=== PATIENT | female | born 1935 | race Caucasian/White ===

== ENCOUNTER → 2017-02-04 | Outpatient (CLI) | payer MEDICARE, OTHER | LOC: GMA 13:42 | PROVIDERS: ATTEND Nurse Practitioner Family | DX: N30.00 Acute cystitis without hematuria (principal) ==

== ENCOUNTER → 2017-04-11 | Outpatient (CLI) | payer MEDICARE, OTHER | END | disposition home or self-care (01) | LOC: GMAM 10:14 | PROVIDERS: ATTEND Family Medicine | DX: E03.9 Hypothyroidism, unspecified (principal); I10 Essential (primary) hypertension ==

== ENCOUNTER → 2017-10-10 | Outpatient (CLI) | payer MEDICARE, OTHER | END | disposition home or self-care (01) | LOC: GMAM 10:44 | PROVIDERS: ATTEND Family Medicine | DX: E03.9 Hypothyroidism, unspecified (principal); E55.9 Vitamin D deficiency, unspecified ==

== ENCOUNTER → 2017-10-18 | Outpatient (CLI) | payer MEDICARE, OTHER | END | disposition home or self-care (01) | LOC: GMAM 17:13 | PROVIDERS: ATTEND Family Medicine | DX: N39.0 Urinary tract infection, site not specified (principal) ==

== ENCOUNTER → 2017-10-20 | Outpatient (CLI) | payer MEDICARE, OTHER ==
--- NOTE | 2017-10-22 08:04 | CT ---
EXAM DESCRIPTION: Pelvis CLINICAL HISTORY: SUPRAPUBIC ABDOMINAL PAIN COMPARISON: None. TECHNIQUE: Spiral-axial scans 5.0 mm intervals through the pelvis: no water soluble barium contrast; no IV contrast. Coronal and axial 2.0 mm reconstructions. Total Exam DLP: 511.52 mGy-cm. This exam was performed according to our departmental CT dose-optimization program which includes automated exposure control, adjustment of the mA and/or kV according to patient size and/or use of iterative reconstruction technique; to reduce radiation dose to as low as reasonably achievable (ALARA). FINDINGS: Spine and Bony Pelvis: Fusion construct involving the S1 segment and the included lumbar segments, posterior bilateral transpedicular screws and interbody fusion. Also anterior fusion construct at L3-4. The included disc spaces contain fusion devices. The included hardware appears to be in customary position. Also posterior bilateral iliac anchors. Beam hardening artifact from the hardware limits evaluation of adjacent soft tissues. Pelvic Organs: Urinary bladder is nondistended. No radiodense stones in the bladder or distal ureters. No fluid in the cul-de-sac. Uterus and ovaries are not visualized. Mesentery: No definite stranding fascial thickening. No free fluid or free air. Small Bowel/Terminal ileum: Included small bowel is nondistended with no air-fluid levels. Normal caliber. Cecum: Distended with fecal material. Appendix is not seen. Colon: Included descending colon is distended with fecal material. Moderate redundancy of the sigmoid colon. Distal sigmoid distended with gas. No definite mass. Inguinal Canals: Small left inguinal hernia containing fat and no bowel. Pelvic Wall/Back Soft Tissues: Unremarkable. Distal aorta and bifurcation showing significant atherosclerotic calcification and narrowing. IMPRESSION: No soft tissue mass in the pelvis and no free fluid. No free air. Cecum and ascending colon showing minimal constipation. Distal sigmoid colon distended by gas. Lumbosacral iliac fusion hardware appears intact where seen. Hardware is creating artifact which limits evaluation of the pelvis. Electronically signed by: Howard Britt MD 10/22/2017 8:03 AM [employer] Workstation: [employer]
== END ==
LOC: CT 10:16
PROVIDERS: ATTEND Family Medicine
DX: R10.33 Periumbilical pain (principal); R10.815 Periumbilic abdominal tenderness; I10 Essential (primary) hypertension; E78.2 Mixed hyperlipidemia; E03.9 Hypothyroidism, unspecified; K21.9 Gastro-esophageal reflux disease without esophagitis

== ENCOUNTER → 2017-12-29 | Outpatient (CLI) | payer MEDICARE, OTHER ==
--- NOTE | 2017-12-29 08:49 | RAD ---
EXAM DESCRIPTION: Knee,Right Complete CLINICAL HISTORY: KNEE PAIN COMPARISON: None. IMPRESSION: 4 standing views of the right knee show no evidence of acute fracture, focal bone destruction, or joint dislocation. Moderate narrowing of the medial tibiofemoral compartment is seen consistent with moderate osteoarthritic changes. Mild narrowing of the patellofemoral compartment more prominent laterally with posterior osteophytes of the patella are consistent with moderate patellofemoral compartment osteoarthritic changes. Small suprapatellar joint effusion is seen. Electronically signed by: Carlo High MD 12/29/2017 8:48 AM [facility]
--- NOTE | 2017-12-29 08:54 | RAD ---
EXAM DESCRIPTION: Pelvis CLINICAL HISTORY: 82 years Female, HIP PAIN COMPARISON: None. TECHNIQUE: Single AP x-ray view of the pelvis FINDINGS: Orthopedic hardware is seen in the lower lumbar spine and sacrum and iliac bodies. Laminectomies of the lower lumbar spine are noted with posterior bone mass consistent with spinal fusion. No hardware fracture is seen. Bones of the pelvic ring appear intact. Density in the right iliac wing may be a bone island. Proximal femurs appear intact. No hip dislocation or femoral fracture. Degenerative changes are seen in the pubic symphysis. Hip joint space appears well-preserved for age. IMPRESSION: Orthopedic hardware in the lower L-spine and sacrum with lower lumbar fusion. Negative for fracture or dislocation of the hips. Electronically signed by: Tacho Love MD 12/29/2017 8:53 AM [facility]
== END ==
LOC: RAD 07:46
PROVIDERS: ATTEND Orthopaedic Surgery
DX: M25.561 Pain in right knee (principal); M25.551 Pain in right hip; Z98.1 Arthrodesis status

== ENCOUNTER → 2018-02-07 | Outpatient (CLI) | payer MEDICARE, OTHER | END | disposition home or self-care (01) | LOC: GMATM 17:10 | PROVIDERS: ATTEND Nurse Practitioner Family | DX: N30.00 Acute cystitis without hematuria (principal) ==

== ENCOUNTER 2018-02-10 09:09 | Emergency (ER) | payer MEDICARE, OTHER ==
[2018-02-10 09:27] VITALS: TEMP 97.5
--- NOTE | 2018-02-10 10:54 | ED.PDOC ---
History of Present Illness - General Chief Complaint: Cardiovascular Problem Stated Complaint: palpitations Time Seen by Provider: 02/10/18 09:27 Source: patient Exam Limitations: no limitations - History of Present Illness Initial Comments: the patient is an 82-year-old female presenting to the emergency room secondary to palpitations that occurred last night around 1 AM. Palpitations lasted for about 30 minutes. No real shortness of breath. No chest pain. No leg swelling. No leg pain. No new back pain. They went away on their own. There were not any worse with movement. No nausea or vomiting. No diaphoresis. The patient has had a history of a mild arrhythmia in the past but has not had any problems she's been on metoprolol. The patient did go on ciprofloxacin for treatment for a urinary tract infection approximately for 5 days ago. She is in no distress currently and has not had any symptoms for the last 8 or 9 hours. She did take her morning medications. Timing/Duration: 1 hour Severity: mild Improving Factors: nothing Worsening Factors: nothing Associated Symptoms: denies symptoms Allergies/Adverse Reactions: Allergies NO KNOWN ALLERGY Allergy (Verified 09/27/15 15:55) Home Medications: Ambulatory Orders Amlodipine Besylate [Norvasc] 2.5 mg PO DAILY 09/27/15 Aspirin [Aspirin Adult Low Dose] 81 mg PO DAILY 09/27/15 Calcium 1,200 mg PO BID 09/27/15 Cholecalciferol [Vitamin D] 4,000 unit PO BID 09/27/15 Furosemide [Lasix] 40 mg PO DAILY 09/27/15 Levothyroxine Sodium 50 mcg PO DAILY 09/27/15 Metoprolol Tartrate [Lopressor] 25 mg PO BEDTIME 09/27/15 Metoprolol Tartrate [Lopressor] 50 mg PO ACBK 09/27/15 Omeprazole [PriLOSEC Cap] 20 mg PO ALONA-OTH-DAY 09/27/15 Potassium Chloride Tab [Micro-K] 10 meq PO DAILY 09/27/15 Simvastatin [Zocor] 20 mg PO BEDTIME 09/27/15 Multiple Vitamins W/ Minerals [Eye Vitamins] 2 cap PO DAILY 02/10/18 Review of Systems - Review of Systems Constitutional: States: no symptoms reported EENTM: States: no symptoms reported Respiratory: States: no symptoms reported Cardiology: States: palpitations Gastrointestinal/Abdominal: States: no symptoms reported Genitourinary: States: no symptoms reported Musculoskeletal: States: no symptoms reported Skin: States: no symptoms reported Neurological: States: no symptoms reported Endocrine: States: no symptoms reported Hematologic/Lymphatic: States: no symptoms reported All other Systems: No Change from Baseline Past Medical History (General) - Patient Medical History Hx Stroke: No Hx Congestive Heart Failure: No Hx Hypertension: Yes Hx Thyroid Disease: Yes Hx Gastroesophageal Reflux: Yes Surgical History: appendectomy, Hysterectomy - Vaccination History Hx Tetanus, Diphtheria Vaccination: No Hx Influenza Vaccination: Yes Hx Pneumococcal Vaccination: Yes - Social History Hx Tobacco Use: No Hx Alcohol Use: No Hx Substance Use: No Hx Substance Use Treatment: No Hx Depression: No Family Medical History - Family History Mother Family History: Unknown Living Status: Physical Exam - Physical Exam General Appearance: Alert, Comfortable, No apparent distress Eye Exam: bilateral normal Ears, Nose, Throat: hearing grossly normal, normal ENT inspection, normal pharynx Neck: full range of motion, supple Respiratory: lungs clear, normal breath sounds, no respiratory distress, no accessory muscle use Cardiovascular/Chest: normal peripheral pulses, regular rate, rhythm, no edema Peripheral Pulses: radial,right: 2+, radial,left: 2+, dorsalis pedis,right: 2+, dorsalis pedis,left: 2+ Gastrointestinal/Abdominal: non tender, soft Rectal Exam: deferred Back Exam: normal inspection, no CVA tenderness, no vertebral tenderness Extremity: normal range of motion, non-tender, normal inspection, no pedal edema , no calf tenderness, normal capillary refill Neurologic: 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 II-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 nml as tested, alert, normal mood/affect, oriented x 3 Skin Exam: normal color Comments: Vital Signs - 8 hr 02/10/18 02/10/18 02/10/18 09:22 10:03 10:04 Temperature 97.5 F L Pulse Rate 70 Pulse Rate [ 78 70 Left Brachial] Respiratory 16 Rate Blood Pressure 160/76 [Left Arm] O2 Sat by Pulse 100 Oximetry 02/10/18 10:10 Temperature Pulse Rate Pulse Rate [ 66 Left Brachial] Respiratory 16 Rate Blood Pressure 120/61 [Left Arm] O2 Sat by Pulse 97 Oximetry Progress - Progress Progress: 02/10/18 10:55 the patient is an 82-year-old female presenting after an episode of palpitations last night approximately 8 hours prior to arrival that has resolved. Laboratory work appears to be reassuring as does the EKG and telemetry monitoring. It is possible she may have had some palpitations due to interference with her ciprofloxacin and her metoprolol. She will discontinue the ciprofloxacin as her urine does appear to have cleared up. She is to continue the metoprolol. The palpitations that she experienced last night certainly may have been from cardiac origin but may have also been from esophageal irritation from the antibiotic. She needs to take Pepcid twice daily for the next 1-2 weeks [id number]. She needs to keep herself well- hydrated. She should follow up with her primary care doctor towards the end of this coming week for reevaluation. - Results/Orders Results/Orders: 02/10/18 09:30 EKG STAT 02/10/18 09:38 Telemetry .CONTINUOUS EKG Assessment ONCE Laboratory Results - last 24 hr 02/10/18 02/10/18 02/10/18 09:51 09:56 09:56 WBC 4.2 L RBC 4.24 Hgb 12.5 Hct 37.3 MCV 88.0 MCH 29.6 MCHC 33.7 RDW 14.8 H Plt Count 168 MPV 8.3 Absolute Neuts (auto) 2.70 Absolute Lymphs (auto) 0.70 L Absolute Monos (auto) 0.50 Absolute Eos (auto) 0.20 Absolute Basos (auto) 0.10 Neutrophils % 66.1 Lymphocytes % 17.2 L Monocytes % 10.9 H Eosinophils % 4.6 Basophils % 1.2 Sodium 141 Potassium 3.5 L Chloride 106 Carbon Dioxide 30 Anion Gap 8.5 L BUN 17 Creatinine 0.87 BUN/Creatinine Ratio 19.5 Random Glucose 91 Serum Osmolality 282.4 Calcium 9.3 Magnesium 2.1 Total Bilirubin 0.8 AST 22 ALT 18 Alkaline Phosphatase 54 Creatine Kinase 40 CK-MB (CK-2) 1.4 CK-MB (CK-2) % Not Reportable Troponin I < 0.02 B-Natriuretic Peptide 180.0 H Serum Total Protein 6.9 Albumin 4.1 Globulin 2.8 Albumin/Globulin Ratio 1.5 TSH 2.17 Urine Color Yellow Urine Appearance Clear Urine pH 6.0 Ur Specific [place] <= 1.005 Urine Protein Negative Urine Glucose (UA) Negative Urine Ketones Negative Urine Blood Negative Urine Nitrite Negative Urine Bilirubin Negative Urine Urobilinogen 0.2 Ur Leukocyte Esterase Negative Urine RBC 0 Urine WBC 0 Ur Epithelial Cells 0 Urine Bacteria 0 EKG shows normal sinus rhythm with a mild first-degree AV block. There is an old Q wave in lead 3. No other obvious abnormalities on EKG. No acute ST or T- segment changes consistent with acute ischemia. Departure - Departure Clinical Impression: Palpitations Disposition: Discharge to Home or Self Care Condition: Fair Departure Forms: ED Discharge - Pt. Copy, Patient Portal Self Enrollment Instructions: DI for Palpitations Diet: regular diet Activity: increase activity as tolerated Referrals: Romario Jiménez MD [Primary Care Provider] - 1-2 Weeks Home Medications: Ambulatory Orders Amlodipine Besylate [Norvasc] 2.5 mg PO DAILY 09/27/15 Aspirin [Aspirin Adult Low Dose] 81 mg PO DAILY 09/27/15 Calcium 1,200 mg PO BID 09/27/15 Cholecalciferol [Vitamin D] 4,000 unit PO BID 09/27/15 Furosemide [Lasix] 40 mg PO DAILY 09/27/15 Levothyroxine Sodium 50 mcg PO DAILY 09/27/15 Metoprolol Tartrate [Lopressor] 25 mg PO BEDTIME 09/27/15 Metoprolol Tartrate [Lopressor] 50 mg PO ACBK 09/27/15 Omeprazole [PriLOSEC Cap] 20 mg PO ALONA-OTH-09/27/15 Potassium Chloride Tab [Micro-K] 10 meq PO DAILY 09/27/15 Simvastatin [Zocor] 20 mg PO BEDTIME 09/27/15 Multiple Vitamins W/ Minerals [Eye Vitamins] 2 cap PO DAILY 02/10/18 Additional Instructions: the patient is an 82-year-old female presenting after an episode of palpitations last night approximately 8 hours prior to arrival that has resolved. Laboratory work appears to be reassuring as does the EKG and telemetry monitoring. It is possible she may have had some palpitations due to interference with her ciprofloxacin and her metoprolol. She will discontinue the ciprofloxacin as her urine does appear to have cleared up. She is to continue the metoprolol. The palpitations that she experienced last night certainly may have been from cardiac origin but may have also been from esophageal irritation from the antibiotic. She needs to take Pepcid twice daily for the next 1-2 weeks [id number]. She needs to keep herself well- hydrated. She should follow up with her primary care doctor towards the end of this coming week for reevaluation.
[2018-02-10 11:10] VITALS: BP 124/62; O2SAT 100
== END 2018-02-10 11:10 | disposition home or self-care (01) ==
LOC: ER 09:09
DX: R00.2 Palpitations (principal); I10 Essential (primary) hypertension; E07.9 Disorder of thyroid, unspecified; K21.9 Gastro-esophageal reflux disease without esophagitis; I44.0 Atrioventricular block, first degree; Z79.82 Long term (current) use of aspirin; Z79.899 Other long term (current) drug therapy

== ENCOUNTER → 2018-02-19 | Outpatient (CLI) | payer MEDICARE, OTHER | LOC: GMAM 17:26 | PROVIDERS: ATTEND Family Medicine | DX: N39.0 Urinary tract infection, site not specified (principal) ==

== ENCOUNTER 2018-03-11 02:12 | Emergency (ER) | payer MEDICARE, OTHER ==
--- NOTE | 2018-03-11 02:35 | ED.PDOC ---
History of Present Illness - General Chief Complaint: Cardiovascular Problem Stated Complaint: Irregular Heartbeat Time Seen by Provider: 03/11/18 02:31 Source: patient Exam Limitations: no limitations - History of Present Illness Initial Comments: Shoshana Mitchell 82 y/o female brought by after she felt that she had irregular heartbeat tonight and took her blood pressure noted systolic BP- 200 mm Hg so she decided to come to ER had irregular heart beat for the last several weeks and presently has ongoing Holter monitoring by her primary Md. Denies chest pain/pressure,no headaches , no blurry vision ,no N/V,no SOB. Timing/Duration: 1-3 hours Location: other - NO chest pain symptoms see hpi Activities at Onset: none Prior Chest Pain/Cardiac Workup: other - see hpi Improving Factors: nothing Worsening Factors: nothing Nitro Today/Relief: no nitro taken today Aspirin Treatment Today: 81 mg x 1 Associated Symptoms: other - see hpi Allergies/Adverse Reactions: Allergies NO KNOWN ALLERGY Allergy (Verified 09/27/15 15:55) Home Medications: Ambulatory Orders Aspirin [Aspirin Adult Low Dose] 81 mg PO DAILY 09/27/15 Furosemide [Lasix] 40 mg PO DAILY 09/27/15 Levothyroxine Sodium 50 mcg PO DAILY 09/27/15 Metoprolol Tartrate [Lopressor] 50 mg PO ACBK 09/27/15 Metoprolol Tartrate [Lopressor] 50 mg PO BEDTIME 09/27/15 Omeprazole [PriLOSEC Cap] 20 mg PO DAILY 09/27/15 Potassium Chloride Tab [Micro-K] 10 meq PO DAILY 09/27/15 Simvastatin [Zocor] 20 mg PO BEDTIME 09/27/15 Multiple Vitamins W/ Minerals [Eye Vitamins] 2 cap PO DAILY 02/10/18 Amlodipine Besylate [Norvasc] 2.5 mg PO DAILY 03/11/18 Calcium 600 mg PO BID 03/11/18 Cholecalciferol [Vitamin D] 2,500 unit PO BID 03/11/18 Review of Systems - Review of Systems Constitutional: States: no symptoms reported EENTM: States: no symptoms reported Respiratory: States: no symptoms reported Cardiology: States: see HPI, palpitations Gastrointestinal/Abdominal: States: no symptoms reported Genitourinary: States: no symptoms reported Neurological: States: no symptoms reported Past Medical History (General) - Patient Medical History Hx Seizures: No Hx Stroke: No Hx Dementia: No Hx Asthma: No Hx of COPD: No Hx Cardiac Disorders: No Hx Congestive Heart Failure: No Hx Pacemaker: No Hx Hypertension: Yes Hx Thyroid Disease: Yes Hx Diabetes: No Hx Gastroesophageal Reflux: Yes Hx Renal Disease: No Hx Cancer: No Hx of HIV: No Hx Hepatitis C: No Hx MRSA: No Surgical History: appendectomy, other - hysterectomy,lower back,total thyroidectomy-1962(hyperthyroidism) - Vaccination History Hx Tetanus, Diphtheria Vaccination: No Hx Influenza Vaccination: Yes Hx Pneumococcal Vaccination: Yes Immunizations Up to Date: No - Social History Hx Tobacco Use: No Hx Chewing Tobacco Use: No Hx Alcohol Use: No Hx Substance Use: No Hx Substance Use Treatment: No Hx Depression: No Feels Threatened In Home Enviroment: No Feels Threatened In a Relationship: No Hx Physical Abuse: No Hx Emotional Abuse: No Hx Suspected Abuse: No - Activities of Daily Living Hospice Agency (if applicable):: None Family Medical History - Family History Mother Family History: Unknown Living Status: Physical Exam - Physical Exam General Appearance: Alert, Comfortable, No apparent distress Eyes, Ears, Nose, Throat Exam: normal ENT inspection Neck: non-tender, full range of motion, supple Respiratory: chest non-tender, lungs clear, normal breath sounds Cardiovascular/Chest: normal peripheral pulses, regular rate, rhythm, no murmur Peripheral Pulses: radial,right: 2+, radial,left: 2+ Gastrointestinal/Abdominal: non tender, soft, no organomegaly Extremity: non-tender, normal inspection, no pedal edema, no calf tenderness Neurologic: alert, oriented x 3 Skin Exam: normal color, warm/dry Progress - Progress Progress: 03/11/18 02:45 Vital Signs - 24 hr 03/11/18 02:18 Temperature 97.7 F Pulse Rate [ 85 Apical] Respiratory 18 Rate Blood Pressure 194/85 [Left Arm] O2 Sat by Pulse 97 Oximetry 03/11/18 03:52 BP-120/87 HR-71 - Results/Orders Results/Orders: Vital Signs - 8 hr 03/11/18 03/11/18 03/11/18 02:18 03:00 03:26 Temperature 97.7 F Pulse Rate [ 85 77 Apical] Respiratory 18 17 Rate Blood Pressure 194/85 136/63 190/98 [Left Arm] O2 Sat by Pulse 97 98 Oximetry - EKG/XRAY/CT EKG: Sinus Comments: HR-82 - Additional EKG/XRAY/Consults EKG #2: Sinus, no ST T wave changes Comments: HR-71 Departure - Departure Clinical Impression: Heart palpitations Hypertension Qualifiers: Hypertension type: unspecified Qualified Code(s): I10 - Essential (primary) hypertension Time of Disposition: 03:47 Disposition: Discharge to Home or Self Care Condition: Fair Departure Forms: ED Discharge - Pt. Copy, Patient Portal Self Enrollment Instructions: Arrhythmias, DI for Arrhythmias, DI for Palpitations Referrals: Romario Jiménez MD [Primary Care Provider] - 1-2 Weeks Home Medications: Ambulatory Orders Aspirin [Aspirin Adult Low Dose] 81 mg PO DAILY 09/27/15 Furosemide [Lasix] 40 mg PO DAILY 09/27/15 Levothyroxine Sodium 50 mcg PO DAILY 09/27/15 Metoprolol Tartrate [Lopressor] 50 mg PO ACBK 09/27/15 Metoprolol Tartrate [Lopressor] 50 mg PO BEDTIME 09/27/15 Omeprazole [PriLOSEC Cap] 20 mg PO DAILY 09/27/15 Potassium Chloride Tab [Micro-K] 10 meq PO DAILY 09/27/15 Simvastatin [Zocor] 20 mg PO BEDTIME 09/27/15 Multiple Vitamins W/ Minerals [Eye Vitamins] 2 cap PO DAILY 02/10/18 Amlodipine Besylate [Norvasc] 2.5 mg PO DAILY 03/11/18 Calcium 600 mg PO BID 03/11/18 Cholecalciferol [Vitamin D] 2,500 unit PO BID 03/11/18 Additional Instructions: Continue with all home medications;Follow up with your primary Md 12 Mar 2018; Return to ER as needed
[2018-03-11] MEDS ORDERED: LABETALOL INJ 5 MG/ML VIAL IV ONE (02:38)
[2018-03-11] MEDS ORDERED: ALPRAZolam 0.25 MG TAB PO ONE (02:39)
[2018-03-11 04:57] VITALS: BP 143/70; TEMP 98.2; O2SAT 98
== END 2018-03-11 04:20 | disposition home or self-care (01) ==
LOC: ER 02:12
DX: R00.2 Palpitations (principal); I10 Essential (primary) hypertension; K21.9 Gastro-esophageal reflux disease without esophagitis; Z79.82 Long term (current) use of aspirin

== ENCOUNTER 2018-03-13 01:49 | Emergency (ER) | payer MEDICARE, OTHER ==
[2018-03-13 02:04] VITALS: TEMP 97.6; O2SAT 99
--- NOTE | 2018-03-13 02:16 | ED.PDOC ---
History of Present Illness - General Chief Complaint: Blood Pressure Problem Stated Complaint: B/P read 198/90 at home, felt hot/flushed Time Seen by Provider: 03/13/18 02:09 Source: patient Exam Limitations: no limitations - History of Present Illness Initial Comments: the patient is an 82-year-old female presenting to the emergency room secondary to a high reading on her blood pressure cuff tonight. She checked her blood pressure and it read in the 190s on thesystolic in. her blood pressures normally run in the 130s.she is asymptomatic. She was concerned because she had been wearing a Holter for an irregular heartbeat. She was not feeling that. Timing/Duration: unsure Severity: mild Improving Factors: nothing Worsening Factors: nothing Associated Symptoms: denies symptoms Allergies/Adverse Reactions: Allergies NO KNOWN ALLERGY Allergy (Verified 03/13/18 02:04) Home Medications: Ambulatory Orders Aspirin [Aspirin Adult Low Dose] 81 mg PO DAILY 09/27/15 Furosemide [Lasix] 40 mg PO DAILY 09/27/15 Levothyroxine Sodium 50 mcg PO DAILY 09/27/15 Metoprolol Tartrate [Lopressor] 50 mg PO ACBK 09/27/15 Metoprolol Tartrate [Lopressor] 50 mg PO BEDTIME 09/27/15 Omeprazole [PriLOSEC Cap] 20 mg PO DAILY 09/27/15 Potassium Chloride Tab [Micro-K] 10 meq PO DAILY 09/27/15 Simvastatin [Zocor] 20 mg PO BEDTIME 09/27/15 Multiple Vitamins W/ Minerals [Eye Vitamins] 2 cap PO DAILY 02/10/18 Amlodipine Besylate [Norvasc] 2.5 mg PO DAILY 03/11/18 Calcium 600 mg PO BID 03/11/18 Cholecalciferol [Vitamin D] 2,500 unit PO BID 03/11/18 Review of Systems - Review of Systems Constitutional: States: no symptoms reported EENTM: States: no symptoms reported Respiratory: States: no symptoms reported Cardiology: States: no symptoms reported Gastrointestinal/Abdominal: States: no symptoms reported Genitourinary: States: no symptoms reported Musculoskeletal: States: no symptoms reported Skin: States: no symptoms reported Neurological: States: anxiety Endocrine: States: no symptoms reported All other Systems: No Change from Baseline Past Medical History (General) - Patient Medical History Hx Seizures: No Hx Stroke: No Hx Dementia: No Hx Asthma: No Hx of COPD: No Hx Cardiac Disorders: No Hx Congestive Heart Failure: No Hx Pacemaker: No Hx Hypertension: Yes Hx Thyroid Disease: Yes Hx Diabetes: No Hx Gastroesophageal Reflux: Yes Hx Renal Disease: No Hx Cancer: No Hx of HIV: No Hx Hepatitis C: No Hx MRSA: No Surgical History: tonsillectomy, Hysterectomy - Vaccination History Hx Tetanus, Diphtheria Vaccination: No Hx Influenza Vaccination: Yes Hx Pneumococcal Vaccination: Yes - Social History Hx Tobacco Use: No Hx Chewing Tobacco Use: No Hx Alcohol Use: No Hx Substance Use: No Hx Substance Use Treatment: No Hx Depression: No Hx Physical Abuse: No Hx Emotional Abuse: No Hx Suspected Abuse: No Family Medical History - Family History Mother Family History: Unknown Living Status: Physical Exam - Physical Exam General Appearance: Alert, Anxious, No apparent distress Eye Exam: bilateral normal Ears, Nose, Throat: normal ENT inspection, normal pharynx Neck: full range of motion, supple Respiratory: lungs clear, normal breath sounds, no respiratory distress, no accessory muscle use Cardiovascular/Chest: normal peripheral pulses, regular rate, rhythm, no edema Peripheral Pulses: radial,right: 2+, radial,left: 2+ Gastrointestinal/Abdominal: non tender, soft Rectal Exam: deferred Back Exam: normal inspection Extremity: normal range of motion, non-tender, normal inspection, no pedal edema , normal capillary refill 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 She may have checked her blood pressure at a random peak. This also may have been a miss reading. Blood pressures here are in the upper normal range for her age. The patient is largely asymptomatic. She needs to follow-up with her primary care doctor later this week. ER warnings were given. Departure - Departure Clinical Impression: Benign hypertension, Asymptomatic hypertension Disposition: Discharge to Home or Self Care Condition: Fair Departure Forms: ED Discharge - Pt. Copy, Patient Portal Self Enrollment Diet: regular diet Activity: increase activity as tolerated Referrals: Romario Jiménez MD [Primary Care Provider] - 1-2 Weeks Home Medications: Ambulatory Orders Aspirin [Aspirin Adult Low Dose] 81 mg PO DAILY 09/27/15 Furosemide [Lasix] 40 mg PO DAILY 09/27/15 Levothyroxine Sodium 50 mcg PO DAILY 09/27/15 Metoprolol Tartrate [Lopressor] 50 mg PO ACBK 09/27/15 Metoprolol Tartrate [Lopressor] 50 mg PO BEDTIME 09/27/15 Omeprazole [PriLOSEC Cap] 20 mg PO DAILY 09/27/15 Potassium Chloride Tab [Micro-K] 10 meq PO DAILY 09/27/15 Simvastatin [Zocor] 20 mg PO BEDTIME 09/27/15 Multiple Vitamins W/ Minerals [Eye Vitamins] 2 cap PO DAILY 02/10/18 Amlodipine Besylate [Norvasc] 2.5 mg PO DAILY 03/11/18 Calcium 600 mg PO BID 03/11/18 Cholecalciferol [Vitamin D] 2,500 unit PO BID 03/11/18 Additional Instructions: the patient is an 82-year-old female presenting secondary to concern over an elevated blood pressure reading tonight. She may have checked her blood pressure at a random peak. This also may have been a miss reading. Blood pressures here are in the upper normal range for her age. The patient is largely asymptomatic. She needs to follow-up with her primary care doctor later this week. ER warnings were given.
[2018-03-13 02:24] VITALS: BP 154/78
== END 2018-03-13 02:25 | disposition home or self-care (01) ==
LOC: ER 01:49
DX: I10 Essential (primary) hypertension (principal); E07.9 Disorder of thyroid, unspecified; K21.9 Gastro-esophageal reflux disease without esophagitis; Z79.82 Long term (current) use of aspirin; Z79.899 Other long term (current) drug therapy

== ENCOUNTER → 2018-05-17 | Outpatient (CLI) | payer MEDICARE, OTHER | LOC: GMAM 10:40 | PROVIDERS: ATTEND Family Medicine | DX: E03.9 Hypothyroidism, unspecified (principal); E55.9 Vitamin D deficiency, unspecified ==

== ENCOUNTER → 2018-06-09 | Outpatient (CLI) | payer MEDICARE, OTHER | LOC: GMATM 16:12 | PROVIDERS: ATTEND Nurse Practitioner Family | DX: N30.00 Acute cystitis without hematuria (principal) ==

== ENCOUNTER → 2018-09-20 | Outpatient (CLI) | payer MEDICARE, OTHER ==
[2018-09-20 13:22] VITALS: TEMP 99
[2018-09-20 14:28] VITALS: BP 128/70; O2SAT 96
== END ==
LOC: INFRM 12:47
PROVIDERS: ATTEND Family Medicine
DX: R11.2 Nausea with vomiting, unspecified (principal)
CPT/HCPCS: 83690; 96360; G0463

== ENCOUNTER → 2018-12-12 | Outpatient (CLI) | payer MEDICARE, OTHER | LOC: GMAM 10:29 | PROVIDERS: ATTEND Family Medicine | DX: E03.9 Hypothyroidism, unspecified (principal); E55.9 Vitamin D deficiency, unspecified ==

== ENCOUNTER → 2019-07-02 | Outpatient (CLI) | payer MEDICARE, OTHER ==
--- NOTE | 2019-07-04 09:19 | MAM ---
EXAM DESCRIPTION: 3D Screening BILATERAL : Digital Mammography. CLINICAL HISTORY: 83 years Female ANNUAL SCREENING . No complaints or personal history of breast cancer. Remote family history of breast cancer. Childbirth. Hysterectomy 40+ years. HRT 5 or more years ago.. Lifetime risk of developing breast cancer (Tyrer-Cuzick model)(%): 1.3. COMPARISON: Baseline study at this facility. No prior reports available. TECHNIQUE: Bilateral CC and MLO projection full-field images, digital tomosynthesis mammographic technique. Bilateral digital 2-D full-field MLO images. CAD not available for tomosynthesis or 2-D images. FINDINGS: The breast parenchymal density pattern is: Almost entirely fatty. No skin thickening or nipple retraction. 2 small well-circumscribed nodules in the mid and anterior left breast. Bilateral vascular calcifications. No focal, stellate mass or density, focal asymmetry , and no suspicious microcalcifications bilaterally. IMPRESSION: Benign exam. BIRAD CATEGORY: 2 BENIGN FINDINGS. RECOMMENDATIONS: FOLLOW UP: Routine digital bilateral mammographic screening, one year interval from June 2019. Written communication explaining the IMPRESSION and follow-up, will be mailed to the patient and referring health care provider. According to the [employer], yearly mammograms are recommended starting at age 40 and continuing as long as a woman is in good health. Any breast change noted on a breast self-exam should be reported promptly to the patient's healthcare provider. Breast MRI is recommended for women with an approximately 20-25% or greater lifetime risk of breast cancer, including women with a strong family history of breast or ovarian cancer and women who have been treated for Hodgkin's disease. A negative mammographic report should not delay tissue diagnosis in patients with significant clinical history or physical findings. Extremely dense breast tissue limits the sensitivity of digital mammography. Electronically signed by: Howard Britt MD 07/04/2019 9:17 AM CDT
== END ==
LOC: MAMMO 08:30
PROVIDERS: ATTEND Family Medicine
DX: Z12.31 Encounter for screening mammogram for malignant neoplasm of breast (principal)

== ENCOUNTER → 2019-10-22 | Outpatient (CLI) | payer MEDICARE, OTHER ==
--- NOTE | 2019-10-23 15:15 | MRI ---
EXAM DESCRIPTION: Cervical Spine: MRI. CLINICAL HISTORY: 83 years Female CERVICALGIA COMPARISON: Cervical radiographs October 16. TECHNIQUE: Multiplanar, high-field MRI, multiple sequences, non-contrast Cervical spine. FINDINGS: C3-C4: Minimal desiccation and minimal disc space loss. Tiny posterior bulge. Mild bilateral hypertrophic facet arthrosis. Small right uncinate spur. Mild narrowing left neural foramen and moderate narrowing right neural foramen. Canal is patent. C4-C5: Disc desiccation with disc space maintained. 2 mm grade 1 anterolisthesis. Tiny posterior midline disc bulge. Bilateral degenerative hypertrophic facet joints more right than left. Posterior ligament thickening. Moderate to severe right neural foraminal narrowing and moderate left neural foraminal narrowing. Mild canal narrowing. C5-C6: Moderate disc space loss and disc desiccation. Posterior disc space loss and disc osteophyte complex bulge abutting the cord. Minimal arthrosis bilateral facet joints more on the left. Bilateral uncinate spurs. Mild to moderate right foraminal narrowing and left neural foraminal stenosis. Minimal posterior ligament thickening. C6-C7: Disc desiccation and tiny posterior bulge. Disc space maintained. Mild to moderate hypertrophic left facet with right facet unremarkable. Normal posterior ligament thickening and canal and right neuroforamen patent with left neural foramen mildly narrowed. C7-T1: Trace anterolisthesis. Disc space maintained with minimal desiccation. Bilateral facet arthrosis more left than right. Bilateral mild neural foraminal narrowing. T2-3 disc desiccation posterior bulge almost touching the cord and perineural cyst in the right neural foramen. Moderate canal narrowing. Normal signal in the C2-C3 disc and T1-T2 disc with no bulging. Disc spaces preserved. Canal and neural foramina are patent. Facet joints unremarkable. Spinal alignment negative.. No cord compression or cord edema. Atlantoaxial joint minimal hypertrophy. Base of the cerebellar tonsils is at the level of the foramen magnum. Paravertebral soft tissues showing a less than 1 cm nodule in the right thyroid lobe.. Vertebral bodies are not compressed at any level. Normal marrow signal in the remaining vertebral bodies and the posterior elements. IMPRESSION: 1. Posterior disc osteophyte complex C5-C6 abutting the cord. Multifactorial left neural foraminal stenosis. Correlate for left C6 radiculopathy. 2. C4-C5 disc desiccation and tiny posterior bulge. Grade 1 anterolisthesis. Moderate to severe right neural foraminal narrowing. Correlate for right C5 radiculopathy. 3. Moderate narrowing right neural foramen at C3-C4. 4. Subcentimeter incidental thyroid nodule. No follow-up imaging is recommended. Reference: J Am Charis Radiol. 2015 Dec;12(2): 143-50. Electronically signed by: Howard Britt MD 10/23/2019 3:14 PM [facility]
== END ==
LOC: MRI 10:00
PROVIDERS: ATTEND Family Medicine
DX: M25.78 Osteophyte, vertebrae (principal); M50.321 Other cervical disc degeneration at C4-C5 level; E04.1 Nontoxic single thyroid nodule; M48.02 Spinal stenosis, cervical region

== ENCOUNTER → 2019-12-23 | Outpatient (CLI) | payer MEDICARE, OTHER | LOC: GMAM 10:41 | PROVIDERS: ATTEND Family Medicine | DX: E03.9 Hypothyroidism, unspecified (principal); E55.9 Vitamin D deficiency, unspecified; E78.2 Mixed hyperlipidemia; I10 Essential (primary) hypertension ==

== ENCOUNTER → 2020-07-09 | Outpatient (CLI) | payer MEDICARE, OTHER | LOC: GMAM 16:39 | PROVIDERS: ATTEND Family Medicine | DX: R39.15 Urgency of urination (principal) ==

== ENCOUNTER → 2020-08-31 | Outpatient (CLI) | payer MEDICARE, OTHER | LOC: GMAJS 10:32 | PROVIDERS: ATTEND Physician Assistant | DX: R30.0 Dysuria (principal) ==

== ENCOUNTER → 2020-09-30 | Outpatient (CLI) | payer MEDICARE, OTHER | LOC: GMAM 10:35 | PROVIDERS: ATTEND Family Medicine | DX: R30.0 Dysuria (principal) ==

== ENCOUNTER → 2020-10-20 | Outpatient (CLI) | payer MEDICARE, OTHER | LOC: GMAM 14:43 | PROVIDERS: ATTEND Family Medicine | DX: E03.9 Hypothyroidism, unspecified (principal); I10 Essential (primary) hypertension ==